=== PATIENT | female | born 1965 | race Two or more races ===

== ENCOUNTER 2025-02-19 11:38 | Emergency (ER) | payer MEDICAID ==
[~2025-02-19] VITALS: Ht 152.4 cm; Wt 74.6 kg
--- NOTE | 2025-02-19 12:14 | ED.PDOC ---
General HPI Comments This is a 59 year old female presenting to the ED with chief complaint of hematuria and dysuria. Also reports recurrent dysuria that has been ongoing for about a month. With intermittent bilateral flank pain for the past 3 weeks, seeing her PCP and being prescribed multiple antibiotics and Fluconazole. Patient relays that she just finished a regiment of Bactrim with no relief. Patient states that she started to experience hematuria today, prompting her to come into the ED. Does not take any blood thinners. Patient denies fever, abdominal pain, or N/V. Chief Complaint: Urinary Time Seen by MD: 12:10 Reviewed notes: Nurses Notes, Medications, Allergies Allergies: Coded Allergies: Fluconazole (Verified Allergy, Severe, 02/19/25) Sulfamethoxazole w/Trimethoprim (Verified Allergy, Severe, 02/19/25) Information Source: Patient Mode of Arrival: Ambulatory Severity: Moderate Timing: Weeks Duration: Since onset Onset: Spontaneous Symptoms: Hematuria History of: UTI Location: (R) Flank, (L)Flank Modifying factors: None associated signs and symptoms: Flank Pain, Hematuria Past Medical History PAST MEDICAL HISTORY: Denies Surgical History: Denies all surgeries PROPERTY DISPOSAL MANAGER History: No Pertinent PROPERTY DISPOSAL MANAGER History Family History Family History: Reviewed,noncontributory to illness Social History Smoker: Non-Smoker Alcohol: Denies ETOH Use Drugs: Denies Drug Use Lives In: Home Constitutional: denies: chills, diaphoresis, fatigue, fever, malaise, sweats, weakness, others EENTM: denies: blurred vision, double vision, ear bleeding, ear discharge, ear drainage, ear pain, ear ringing, eye pain, eye redness, hearing loss, mouth pain, mouth swelling, nasal discharge, nose bleeding, nose congestion, nose pain, photophobia, tearing, throat pain, throat swelling, voice changes, others Respiratory: denies: cough, hemoptysis, orthopnea, SOB at rest, shortness of breath, SOB with excertion, stridor, wheezing, others Cardiovascular: denies: chest pain, dizzy spells, diaphoresis, Dyspnea on exertion, edema, irregular heart beat, left arm pain, lightheadedness, palpitations, PND, syncope, others Gastrointestinal: denies: abdomen distended, abdominal pain, blood streaked bowels, constipated, diarrhea, dysphagia, difficulty swallowing, hematemesis, melena, nausea, poor appetite, poor fluid intake, rectal bleeding, rectal pain, vomiting, others Genitourinary: reports: flank pain, hematuria; denies: abnormal vagina bleeding, burning, dyspareunia, dysuria, frequency, incontinence, pain, , vagina discharge, urgency, others Neurological: denies: dizziness, fainting, headache, left sided numbness, left sided weakness, numbness, paresthesia, pre-existing deficit, right sided numbness, right sided weakness, seizure, speech problems, tingling, tremors, weakness, others Musculoskeletal: denies: back pain, gout, joint pain, joint swelling, muscle pain, muscle stiffness, neck pain, others Integumetry: denies: bruises, change in color, change in hair/nails, dryness, laceration, lesions, lumps, rash, wounds, others Allergic/Immunocompromised: denies: Difficulty Healing, Frequent Infections, Hives, Itching, others Hematologic/Lymphatic: denies: anemia, blood clots, easy bleeding, easy bruising, swollen glands, others Endocrine: denies: excessive hunger, excessive sweating, excessive thirst, excessive urination, flushing, intolerance to cold, intolerance to heat, unexplained weight gain, unexplained weight loss, others Psychiatric: denies: anxiety, bipolar disorder, depression, hopeless, panic disorder, schizophrenia, sleepless, suicidal, others All Other Systems: Reviewed and Negative Physical Exam General Appearance: No Apparent Distress, Normal HEENT: Normal ENT Inspection, Pharynx Normal, TMs Normal Neck: Full Range of Motion, Non-Tender, Normal, Normal Inspection Respiratory: Chest Non-Tender, Lungs Clear, No Accessory Muscle Use, No Respiratory Distress, Normal Breath Sounds Cardiovascular: No Edema, No JVD, No Murmur, No Gallop, Normal Peripheral Pulses, Regular Rate/Rhythm Breast Exam: Deferred Gastrointestinal: No Organomegaly, Non Tender, No Pulsatile Mass, Normal Bowel Sounds, Soft Genitalia: Deferred Pelvic: Deferred Rectal: Deferred Extremities: No calf tenderness, Normal capillary refill, Normal inspection, Normal range of motion, Non-tender, No pedal edema Musculoskeletal : Apperance: Normal Neurologic: Alert, 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 Was a procedure done?: No Differential Diagnosis Kidney stone (Female): Musculoskeletal pain Penile/Scrotal: UTI, Urolithiasis X-Ray, Labs, Meds, VS Vital Signs Date Time Temp Pulse Resp B/P (MAP) Pulse Ox O2 Delivery O2 Flow Rate FiO2 02/19/25 15:45 98.7 77 16 123/77 (92) 95 98.7 02/19/25 12:40 98.0 02/19/25 12:40 98.0 02/19/25 12:28 97.9 87 15 126/65 (85) 96 97.9 02/19/25 11:47 97.8 94 15 145/86 98 97.8 Lab Test 02/19/25 12:38 02/19/25 12:02 Range/Units Urine Color Light-yellow Yellow Urine Clarity Clear Clear Urine pH 6.0 5.0-9.0 Urine Specific [place] 1.023 1.001-1.035 Urine Protein Negative Negative Urine Ketones Negative Negative Urine Blood Negative Negative /uL Urine Nitrite Negative Negative Urine Bilirubin Negative Negative Urine Urobilinogen Normal Negative mg/dL Urine Leukocyte Esterase Negative Negative /uL Urine RBC 2 0 - 4 /hpf Urine Microscopic WBC 2 0-5 /HPF Urine Squamous Epithelial Cells Few <5 /hpf Urine Bacteria Few H None Seen /hpf Urine Mucus Few None Seen Urine Glucose Normal Normal mg/dL White Blood Count 8.2 4.4-10.8 10^3/uL Red Blood Count 5.17 4.0-5.20 10^6/uL Hemoglobin 14.6 12.2-16.2 g/dL Hematocrit 45.5 36.0-46.0 % Mean Corpuscular Volume 88.0 80.0-100.0 fL Mean Corpuscular Hemoglobin 28.2 28.0-32.0 pg Mean Corpuscular Hemoglobin Concent 32.0 32.0-36.0 g/dL Red Cell Distribution Width 13.8 11.8-14.3 % Platelet Count 406 140-450 10^3/uL Mean Platelet Volume 6.9 6.9-10.8 fL Neutrophils (%) (Auto) 49.7 37.0-80.0 % Lymphocytes (%) (Auto) 37.0 10.0-50.0 % Monocytes (%) (Auto) 9.7 0.0-12.0 % Eosinophils (%) (Auto) 2.7 0.0-7.0 % Basophils (%) (Auto) 0.9 0.0-2.0 % Neutrophils # (Auto) 4.1 1.6-8.6 10 ^3/uL Lymphocytes # (Auto) 3.0 0.4-5.4 10 ^3/uL Monocytes # (Auto) 0.8 0-1.3 10 ^3/uL Eosinophils # (Auto) 0.2 0-0.8 10 ^3/uL Basophils # (Auto) 0.1 0-0.2 10 ^3/uL Nucleated Red Blood Cells 0.1 % Prothrombin Time 9.9 9.3-11.8 sec Prothrombin Time INR 0.93 0.9-1.15 Activated Partial Thromboplast Time 25.0 24.5-34.5 SEC Sodium Level 139 136-145 mmol/L Potassium Level 3.8 3.5-5.1 mmol/L Chloride Level 103 98-107 mmol/L Carbon Dioxide Level 28 20-31 mmol/L Anion Gap 8 5-15 Blood Urea Nitrogen 9 9-23 mg/dL Creatinine 0.81 0.550-1.02 mg/dL Glomerular Filtration Rate Calc 83 >90 mL/min BUN/Creatinine Ratio 11.1 10.0-20.0 Serum Glucose 95 74-106 mg/dL Calcium Level 9.9 8.7-10.4 mg/dL Total Bilirubin 0.3 0.2-1.0 mg/dL Aspartate Amino Transferase (AST) 32 13-40 U/L Alanine Aminotransferase (ALT) 50 H 7-40 U/L Alkaline Phosphatase 101 46-116 U/L Total Protein 7.9 5.7-8.2 g/dL Albumin 4.6 3.2-4.8 g/dL Current Medications Medications (Trade) Dose Ordered Sig/Rajni Route Start Time Stop Time Status Last Admin Acetaminophen (Tylenol Tablet Or Capsule) 1,000 mg ONCE ONCE PO 02/19/25 12:15 02/19/25 12:16 DC 02/19/25 12:40 Ibuprofen (Motrin Tablet) 600 mg ONCE ONCE PO 02/19/25 12:15 02/19/25 12:16 DC 02/19/25 12:40 [facility] [id number] [place] [id number] Ph: [phone] DIAGNOSTIC IMAGING Diagnostic Imaging Report : [id number] Signed PATIENT: HERB MARCUM ACCT: [id number] UNIT: [id number] : 1965 LOC: ER ROOM / BED: / AGE / SEX: 59 / F ADM STATUS: REG ER SERVICE 1203 ORDERING PHYSICIAN: CELINE PALACIOS MD PROCEDURE(s): ABPL - CT AB PEL WO CON-NO ORAL OR IV REASON: flank pain and hematuria ORDER NUMBER(s): [id number], ACCESSION NUMBER(s): [id number] EXAM: CT CT AB PEL WO CON-NO ORAL OR IV INDICATION: flank pain and hematuria TECHNIQUE: Volumetric multidetector CT images of the abdomen and pelvis were obtained without contrast. All CT scans at this facility use dose modulation, iterative reconstruction, and/or weight based dosing when appropriate to reduce radiation dose to as low as reasonably achievable. COMPARISON: None FINDINGS: [LOWER CHEST]: The partially visualized lung bases are clear without a pleural effusion. The cardiac size is normal without pericardial effusion. [LIVER]: Diffuse hepatic steatosis. [GALLBLADDER AND BILIARY TREE]: Gallbladder is surgically absent. [SPLEEN]: Unremarkable. [PANCREAS]: Unremarkable. [ADRENAL GLANDS]: Unremarkable [KIDNEYS]: In regards to the clinical question, no visualized hydroure teronephrosis or definitive nephroureterolithiasis. [BLADDER]: Unremarkable for the degree distention. [REPRODUCTIVE ORGANS]: Hysterectomy. [BOWEL/MESENTERY]: Stomach is normal. No CT evidence of bowel obstruction. Appendix is poorly visualized. [ASCITES]: Absent [LYMPHADENOPATHY]: No pathologically enlarged lymph nodes by CT size criteria [VASCULATURE]: No aneurysmal dilatation. [ABDOMINAL WALL]: Unremarkable. [MUSCULOSKELETAL]: No acute fracture or aggressive focal osseous lesion. Multifocal degenerative change of the visualized spine. Fat containing lipoma deep to the right serratus anterior muscle belly overlying the right ribcage measuring 5.2 cm. [OTHER]: None IMPRESSION: 1. No hydroureteronephrosis or nephroureterolithiasis. 2. Diffuse hepatic steatosis. ATED BY: VISHAL GAMBOA MD DICTATED DATE/TIME: 02/19/251245 SIGNED BY: VISHAL GAMBOA MD SIGNED DATE/TIME: 02/19/251245 CC: Images Reviewed?: Images reviewed and evaluated by me Time of 1ST Reevaluation: 13:12 Reevaluation 1ST: Unchanged Time of 2ND Reevaluation: 16:03 (Patient reports resolution of discomfort.) Patient Education/Counseling: Diagnosis, Treatment Family Education/Counseling: No Family Present SEPSIS Sepsis Screen Date sepsis recognized/suspect: Feb 19, 2025 Time Sepsis recognized/suspect: 1150 Recent Procedure: No On Antibiotic Therapy: No Respiratory Rate >20: No Heart Rate >90: No Temp<36 C (96.8 F) or >38.3 C: No SBP <90 or MAP <65 mmHG: No New Acute Mental Status Change: No Is the patient on CPAP, BIPAP,: No Physician Orders Ct Ab Pel Wo Con-No Oral Or Iv (02/19/25 12:03) Vital Signs Date Time Temp Pulse Resp B/P (MAP) Pulse Ox O2 Delivery O2 Flow Rate FiO2 02/19/25 15:45 98.7 77 16 123/77 (92) 95 98.7 02/19/25 12:40 98.0 02/19/25 12:40 98.0 02/19/25 12:28 97.9 87 15 126/65 (85) 96 97.9 02/19/25 11:47 97.8 94 15 145/86 98 97.8 Laboratory Tests Test 02/19/25 12:02 White Blood Count 8.2 10^3/uL (4.4-10.8) Medications Medications Dose Ordered Sig/Rajni Route Start Time Stop Time Status Last Admin Dose Admin Acetaminophen 1,000 mg ONCE ONCE PO 02/19/25 12:15 02/19/25 12:16 DC 02/19/25 12:40 Ibuprofen 600 mg ONCE ONCE PO 02/19/25 12:15 02/19/25 12:16 DC 02/19/25 12:40 Departure 1 Departure Time of Disposition: 16:04 (59-year-old female presenting for evaluation of recurrent dysuria over the past month. Patient has already received numerous c ourses of antibiotics with no change to her symptoms. Given persistence of symptoms despite numerous different antibiotics to not truly suspect UTI. Urinalysis today does not seem consistent with urinary tract infection. CBC with no evidence of critical leukocytosis or significant anemia. Metabolic panel with no evidence of any acute electrolyte abnormalities or acute kidney in sufficiency. No evidence of any significant transaminitis on liver function tests. Given the patient's urinary symptoms and reported hematuria a CT of the abdomen and pelvis was performed to evaluate for nephrolithiasis or other acute findings that could be causing her symptoms. CT shows no evidence of any acute intra-abdominal process that could explain the patient's symptoms. Patient was given a 1 time oral Tylenol, ibuprofen dose. Could be having muscular pain causing symptoms. Given the acute on chronic nature of the symptoms that have been ongoing for 1 month with today's reassuring workup the patient is stable for discharge for continued outpatient workup and management by PMD.) Impression: Primary Impression: Low back pain Additional Impressions: Hematuria Dysuria Disposition: HOME / SELF CARE / HOMELESS Condition: Stable Additional Instructions: Your labs today were within normal limits. Your urinalysis shows no findings to suggest that you currently have a urinary tract infection. A CT of your abdomen and pelvis was performed which shows no evidence of any acute intra- abdominal process to explain your symptoms. If you continue having recurrent urinary symptoms please follow up with your primary care doctor for further workup and management. Discharged With: Self Critical Care Note Critical Care Time?: No Stability Stability form required: No Heart Score Heart Score: Heart Score Response (Comments) Value History N/A 0 EKG N/A 0 Age N/A 0 Risk Factors N/A 0 Troponin N/A 0 Total 0 I personally scribed for CELINE PALACIOS MD ([employer]) on 02/19/25 at 12:14. Electronically submitted by Brian Stewart ([email or web address]). I personally scribed for CELINE PALACIOS MD ([employer]) on 02/19/25 at 12:54. Electronically submitted by Brian Stewart ([email or web address]). CELINE PALACIOS MD Feb 19, 2025 12:14
[2025-02-19 12:22] LABS: Hematocrit 45.5 % (36.0-46.0); Hemoglobin 14.6 g/dL (12.2-16.2); Mean Corpuscular Hemoglobin 28.2 pg (28.0-32.0); Mean Corpuscular Volume 88.0 fL (80.0-100.0); Nucleated Red Blood Cells % 0.1 %
[2025-02-19 12:35] LABS: Albumin 4.6 g/dL (3.2-4.8); Alkaline Phosphatase 101 U/L (46-116); Anion Gap 8 (5-15); BUN/Creatinine Ratio 11.1 (10.0-20.0); Bilirubin, Total 0.3 mg/dL (0.2-1.0); Calcium 9.9 mg/dL (8.7-10.4); Carbon Dioxide 28 mmol/L (20-31); Chloride 103 mmol/L (98-107); Glucose 95 mg/dL (74-106); Potassium 3.8 mmol/L (3.5-5.1); Sodium 139 mmol/L (136-145); Total Protein 7.9 g/dL (5.7-8.2)
[2025-02-19 12:39] LABS: Alanine Aminotransferase 50 U/L (7-40); Blood Urea Nitrogen 9 mg/dL (9-23)
[2025-02-19] MEDS: ACETAMINOPHEN 500 MG TAB or CAP PO ONE (12:40)
[2025-02-19] MEDS: IBUPROFEN 600 MG TAB PO ONE (12:40)
[2025-02-19 12:42] LABS: INR 0.93 (0.9-1.15); Partial Thromboplastin Time 25.0 SEC (24.5-34.5); Prothrombin Time 9.9 sec (9.3-11.8)
--- NOTE | 2025-02-19 12:49 | DVH ---
EXAM: CT CT AB PEL WO CON-NO ORAL OR IV INDICATION: flank pain and hematuria TECHNIQUE: Volumetric multidetector CT images of the abdomen and pelvis were obtained without contrast. All CT scans at this facility use dose modulation, iterative reconstruction, and/or weight based dosing when appropriate to reduce radiation dose to as low as reasonably achievable. COMPARISON: None FINDINGS: [LOWER CHEST]: The partially visualized lung bases are clear without a pleural effusion. The cardiac size is normal without pericardial effusion. [LIVER]: Diffuse hepatic steatosis. [GALLBLADDER AND BILIARY TREE]: Gallbladder is surgically absent. [SPLEEN]: Unremarkable. [PANCREAS]: Unremarkable. [ADRENAL GLANDS]: Unremarkable [KIDNEYS]: In regards to the clinical question, no visualized hydroureteronephrosis or definitive nephroureterolithiasis. [BLADDER]: Unremarkable for the degree distention. [REPRODUCTIVE ORGANS]: Hysterectomy. [BOWEL/MESENTERY]: Stomach is normal. No CT evidence of bowel obstruction. Appendix is poorly visualized. [ASCITES]: Absent [LYMPHADENOPATHY]: No pathologically enlarged lymph nodes by CT size criteria [VASCULATURE]: No aneurysmal dilatation. [ABDOMINAL WALL]: Unremarkable. [MUSCULOSKELETAL]: No acute fracture or aggressive focal osseous lesion. Multifocal degenerative change of the visualized spine. Fat containing lipoma deep to the right serratus anterior muscle belly overlying the right ribcage measuring 5.2 cm. [OTHER]: None IMPRESSION: 1. No hydroureteronephrosis or nephroureterolithiasis. 2. Diffuse hepatic steatosis.
[2025-02-19 13:06] LABS: Urine Protein, UAD Negative (Negative)
[2025-02-19 15:45] VITALS: BP 123/77; PULSE 77; RESP 16; TEMP 98.7; O2SAT 95
== END 2025-02-19 17:49 | disposition home or self-care (01) ==
LOC: ER 11:38
DX: M54.50 Low back pain, unspecified (principal); R31.9 Hematuria, unspecified; R30.0 Dysuria; Z88.2 Allergy status to sulfonamides; Z88.1 Allergy status to other antibiotic agents
CPT/HCPCS: 36415; 74176; 80053; 81001; 85025; 85610; 85730